=== PATIENT | female | born 2000 | race Caucasian/White ===

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

== ENCOUNTER 2022-02-18 14:45 | Outpatient (CLI) | payer OTHER, SELFPAY ==
[2022-02-18 18:56] LABS: Basophils Absolute Auto 0.1 K/mm3 (0.0-0.1); Basophils Percent Auto 0.7 % (0.2-1.2); Eosinophils Absolute Auto 0.2 K/mm3 (0-0.3); Eosinophils Percent Auto 2.9 % (0-4.4); Hematocrit 45.1 % (37.0-47.0); Hemoglobin 14.6 g/dL (12.0-15.0); Immature Granulocyte Absolute 0.02 K/mm3 (0.00-0.031); Immature Granulocyte Percent A 0.3 % (0-0.5); Lymphocytes Absolute Auto 2.62 K/mm3 (0.9-3.2); Lymphocytes Percent Auto 34.7 % (18.3-44.2); Mean Corpuscular HGB Conc 32.4 g/dl (32-36); Mean Corpuscular Hemoglobin 29.9 pg (26-34); Mean Corpuscular Volume 92.4 fl (80-100); Mean Platelet Volume 11.8 fl (7.4-10.4); Monocytes Absolute Auto 0.5 K/mm3 (0.1-0.6); Monocytes Percent Auto 6.2 % (2.6-8.5); Neutrophils Absolute Auto 4.2 K/mm3 (1.3-6.7); Neutrophils Percent Auto 55.2 % (45.5-73.1); Platelet Count Result 264 k/mm3 (150-375); Red Blood Count 4.88 M/mm3 (4.2-5.4); Red Cell Distribution Width 13.2 % (11.5-14.5); White Blood Count 7.5 K/mm3 (4.5-10.0)
[2022-02-18 20:49] LABS: Hepatitis B Surface Antigen Negative (Negative)
[2022-02-18 20:55] LABS: HAV RESULT Negative (Negative); Hepatitis B Core IgM Result Negative (Negative)
[2022-02-18 21:03] LABS: Alanine Aminotransferase 23 U/L (6-35); Albumin Level 4.9 g/dL (3.5-5.1); Alkaline Phosphatase 51 U/L (38-126); Anion Gap 11 mmol/L (8-16); Aspartate Amino Transferase 43 U/L (14-36); Bilirubin,Total 0.7 mg/dL (0.2-1.3); Blood Urea Nitrogen 15 mg/dL (7-17); Calcium 9.7 mg/dL (8.4-10.2); Carbon Dioxide 27 mmol/L (22-30); Chloride 101 mmol/L (98-107); Estimated Glomerular Filt Rate > 60; Glucose 87 mg/dL (65-110); Sodium 139 mmol/L (137-145)
[2022-02-18 21:06] LABS: Hepatitis C Virus Antibody Negative (Negative)
[2022-02-18 21:36] LABS: Thyroid Stimulating Hormone 0.855 uIU/mL (0.465-4.680)
[2022-02-18 21:46] LABS: HIV 1/2 Ab P24 Ag Result Negative (Negative)
[2022-02-19 08:48] LABS: Rapid Plasma Reagin Non-Reactive (NonReactive)
== END 2022-02-18 14:46 | disposition home or self-care (01) ==
LOC: ANHGOSHLAB 14:47
PROVIDERS: PCP Internal Medicine; Visit Provider Obstetrics & Gynecology
DX: Z11.3 Encounter for screening for infections with a predominantly sexual mode of transmission (principal); R25.1 Tremor, unspecified; Z86.2 Personal history of diseases of the blood and blood-forming organs and certain disorders involving the immune mechanism
CPT/HCPCS: 36415; 80053; 80074; 82728; 84443; 85025; 86592; 86703; G0432

== ENCOUNTER 2023-02-09 16:56 | Outpatient (CLI) | payer OTHER, SELFPAY ==
--- NOTE | ~2023-02-09 | MR_ITS ---
MRI of the brain Clinical History: Syncope Technique: Axial and sagittal T1-weighted images were acquired. These were followed by axial T2-weigh marzena, diffusion weighted, gradient, and FLAIR images. Following intravenous administration of 15 cc Mu ltiHance gadolinium, T1-weighted fat-sat imaging was performed in the axial and coronal planes. Findings: There is no abnormal signal in the brain parenchyma. No acute infarct, intracranial hemorrh age or mass lesion. Ventricles and subarachnoid spaces are unremarkable. Orbits are unremarkable. Paranasal sinuses and m astoid air cells are clear. Major intracranial flow voids are intact. Sagittal midline structures are intact. No abnormal postcontrast enhancement identified. IMPRESSION: Unremarkable exam. Reviewed, dictated and finalized at location M. IMPRESSION: Unremarkable exam.
== END 2023-02-09 16:57 | disposition home or self-care (01) ==
LOC: ANHIMG 16:57
PROVIDERS: PCP Internal Medicine; Visit Provider Nurse Practitioner
DX: R55 Syncope and collapse (principal); H53.8 Other visual disturbances; Z82.49 Family history of ischemic heart disease and other diseases of the circulatory system
CPT/HCPCS: 70553; A9577

== ENCOUNTER 2023-05-05 14:29 | Emergency (ER) | payer OTHER, SELFPAY ==
--- NOTE | ~2023-05-05 | XR_ITS ---
EXAMINATION: XR hand LT min 3V DATE: 05/05/2023 14:55 INDICATION: Malhotra left hand pain post fall TECHNIQUE: Posteroanterior, oblique and lateral views of the left hand were obtained. COMPARISON: None. FINDINGS: Alignment is normal. No fracture. Joint spaces are normal. Soft tissues are unremarkable. IMPRESSION: 1. Negative left hand radiographs. Reviewed, dictated and finalized at location A.
[2023-05-05 14:36] VITALS: BP 119/66; PULSE 73; RESP 16; TEMP 36.3; O2SAT 100
--- NOTE | 2023-05-05 14:41 | ED.UPPEXIN ---
HPI - Extremity Injury (Upper) General Chief Complaint: Extremity Injury, Upper Stated Complaint: Injured hand Source: patient and RN notes reviewed Mode of arrival: ambulatory Limitations: no limitations History of Present Illness HPI narrative: Patient is a 23-year-old female who presents to the [facility] with complaints of left hand pain. Patient states that she started experiencing pain after fall that occurred yesterday evening. Patient states that she was working for [employer] and had a delivery near a construction area. Patient states that she decided to go through the area that was ripped off. Patient states that her foot got caught up on the rope, causing her to fall. Patient states that she caught herself with her left hand. She has been experiencing constant aching to the palm of her left hand ever since. The pain is exacerbated with movement. She has full range of motion of the hand and wrist but states that causes her discomfort. Sensation is intact and she denies numbness. She is neurovascularly intact distally. Related Data Home Medications Medication Instructions Recorded Confirmed levonorgestrel 21 mcg/24 hours (8 1 device intrauterine ONCE 01/22/22 02/09/23 yrs) 52 mg intrauterine device (Mirena) Allergies Allergy/AdvReac Type Severity Reaction Status Date / Time No Known Allergies Allergy Mild Verified 02/09/23 11:43 Review of Systems Review of Systems: CONSTITUTIONAL: Denies fever, chills, or sweats. EYES: Denies visual changes, redness, or discharge. ENT: Denies otalgia and sore throat CARDIOVASCULAR: Denies chest pain, palpitations, or edema. RESPIRATORY: Denies cough or dyspnea. GASTROINTESTINAL: Denies abdominal pain, nausea, vomiting, or diarrhea. GENITOURINARY: Denies dysuria or hematuria. SKIN: Denies rash or itching. MUSCULOSKELETAL: Denies back pain or myalgia. Reports left hand pain. NEUROLOGIC: Denies headache, numbness, or weakness. Pertinent positives per HPI. [facility] Past Medical History Medical History Benign essential tremor Encounter for IUD insertion (04/01/20) Mirena insertion Encounter for screening examination for sexually transmitted disease Surgical History Surgical History History of placement of ear tubes x7 History of tonsillectomy Family History Family History Mother Asthma Aneurysm with brain surgery Father Lymphoma has 2 types of cancer Social History Social History Smoking status: Never smoker Second hand tobacco smoke exposure: Yes Alcohol intake: never Substance use: never Substance use type: does not use Lack of Transportation: No Lack of Food: Never True Current Housing: I Have Housing Concerned About Future Housing: No Difficulty Paying Gas/Electric Bills: No Difficulty Paying for Meds: No Currently Unemployed: No Education: High School Diploma/GED Difficulty w/ Childcare or Family Care: No Living arrangements: with family Additional living arrangements comments: single 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 There is no relevant family history pertinent to the patient complaint. Exam Narrative: GENERAL: This is a well-nourished, well-developed patient, in no apparent distress. HEAD: normocephalic, atraumatic. EYES: Sclera clear/white. Vision is grossly intact. EARS: External ears normal. Hearing grossly intact.
== END 2023-05-05 15:23 | disposition home or self-care (01) ==
PROVIDERS: Emergency Provider Nurse Practitioner; PCP Internal Medicine
DX: S60.222A Contusion of left hand, initial encounter (principal); W01.0XXA Fall on same level from slipping, tripping and stumbling without subsequent striking against object, initial encounter; Y92.69 Other specified industrial and construction area as the place of occurrence of the external cause; Y99.0 Civilian activity done for income or pay
CPT/HCPCS: 73130; 99213; G0463

== ENCOUNTER 2023-05-11 14:12 | Emergency (ER) | payer OTHER, SELFPAY ==
[2023-05-11 14:17] VITALS: BP 123/53; PULSE 82; RESP 20; TEMP 36.6; O2SAT 100
--- NOTE | 2023-05-11 14:50 | ED.NAVMDI ---
HPI - Nausea/Vomiting/Diarrhea General Chief complaint: Nausea/Vomiting/Diarrhea Stated complaint: n/v/d History of Present Illness HPI Narrative: 23-year-old female presents to the emergency room for evaluation of multiple episodes of nonbilious nonbloody vomiting and nonbloody diarrhea since this morning. Patient states that she reheated some Mong[place] food this morning prior to onset of symptoms. Patient also endorses abdominal cramping. Related Data Home Medications Medication Instructions Recorded Confirmed levonorgestrel 21 mcg/24 hours (8 1 device intrauterine ONCE 01/22/22 02/09/23 yrs) 52 mg intrauterine device (Mirena) Allergies Allergy/AdvReac Type Severity Reaction Status Date / Time No Known Allergies Allergy Mild Verified 05/11/23 14:20 Review of Systems Review of Systems: CONSTITUTIONAL: Denies fever, chills, or sweats. EYES: Denies visual changes, redness, or discharge. ENT: Denies rhinorrhea, congestion, sore throat, or otalgia. CARDIOVASCULAR: Denies chest pain, palpitations, or edema. RESPIRATORY: Denies cough or dyspnea. GASTROINTESTINAL: Reports abdominal pain, nausea, vomiting, and diarrhea. GENITOURINARY: Denies dysuria or hematuria. SKIN: Denies rash or itching. MUSCULOSKELETAL: Denies back pain, joint pain, or myalgia. NEUROLOGIC: Denies headache, numbness, dizziness, or weakness. PSYCHIATRIC: Denies anxiety or depression. [facility] Past Medical History Medical History Benign essential tremor Encounter for IUD insertion (04/01/20) Mirena insertion Encounter for screening examination for sexually transmitted disease Surgical History Surgical History History of placement of ear tubes x7 History of tonsillectomy Family History Family History Mother Asthma Aneurysm with brain surgery Father Lymphoma has 2 types of cancer Social History Social History Smoking status: Never smoker Second hand tobacco smoke exposure: Yes Alcohol intake: never Substance use: never Substance use type: does not use Lack of Transportation: No Lack of Food: Never True Current Housing: I Have Housing Concerned About Future Housing: No Difficulty Paying Gas/Electric Bills: No Difficulty Paying for Meds: No Currently Unemployed: No Education: High School Diploma/GED Difficulty w/ Childcare or Family Care: No Living arrangements: with family Additional living arrangements comments: single 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 HEAD: Normocephalic, atraumatic. EYES: Conjunctivae normal, PERRLA and EOMI. CHEST: Clear to auscultation. No respiratory distress. No wheezes rales or rhonchi. HEART: Regular rate and rhythm. No murmur heard. Normal peripheral pulses. ABDOMEN: Soft, diffuse tenderness, nondistended, hyperactive bowel sounds. BACK: No CVA tenderness EXTREMITIES: Normal range of motion. No edema. No clubbing or cyanosis SKIN: Warm, dry, no rash. No noted wounds NEURO: No focal deficits. Alert and oriented x3. MAEW. CN's II-XI intact bilaterally, normal gait PSYCH: Cooperative. Normal mood and affect. Course Vital Signs Vital signs: Vital Signs Temperature 36.6 C 05/11/23 14:17 Pulse Rate 82 05/11/23 14:17 Respiratory Rate 20 05/11/23 14:17 Blood Pressure 123/53 L 05/11/23 14:17 Pulse Oximetry 100 05/11/23 14:17 Oxygen Delivery Room Air 05/11/23 14:17 Temperature 36.6 C
[2023-05-11] MEDS: ONDANSETRON INJ 4 MG/2 ML VIAL IV PUSH (14:52)
[2023-05-11] MEDS: DICYCLOMINE HCL INJ 20 MG/2 ML VIAL IM (14:52)
[2023-05-11] MEDS: SODIUM CHLORIDE 0.9% IV 1,000 ML 999 ML IV CONT ×2 (14:52→15:32)
[2023-05-11 15:01] LABS: Basophils Percent Auto 0.1 % (0.2-1.2); Eosinophils Absolute Auto 0.1 K/mm3 (0-0.3); Eosinophils Percent Auto 0.5 % (0-4.4); Hematocrit 46.6 % (37.0-47.0); Hemoglobin 15.1 g/dL (12.0-15.0); Immature Granulocyte Absolute 0.06 K/mm3 (0.00-0.031); Immature Granulocyte Percent A 0.4 % (0-0.5); Lymphocytes Absolute Auto 0.79 K/mm3 (0.9-3.2); Lymphocytes Percent Auto 5.8 % (18.3-44.2); Mean Corpuscular HGB Conc 32.4 g/dl (32-36); Mean Corpuscular Hemoglobin 30.2 pg (26-34); Mean Corpuscular Volume 93.2 fl (80-100); Mean Platelet Volume 11.2 fl (7.4-10.4); Monocytes Absolute Auto 0.5 K/mm3 (0.1-0.6); Monocytes Percent Auto 3.4 % (2.6-8.5); Neutrophils Absolute Auto 12.2 K/mm3 (1.3-6.7); Neutrophils Percent Auto 89.8 % (45.5-73.1); Platelet Count Result 236 k/mm3 (150-375); Red Cell Distribution Width 12.3 % (11.5-14.5); White Blood Count 13.7 K/mm3 (4.5-10.0)
[2023-05-11 15:11] LABS: Alanine Aminotransferase 23 U/L (6-35); Alkaline Phosphatase 50 U/L (38-126); Anion Gap 10 mmol/L (8-16); Aspartate Amino Transferase 21 U/L (14-36); Bilirubin,Total 1.2 mg/dL (0.2-1.3); Blood Urea Nitrogen 17 mg/dL (7-17); Calcium 9.5 mg/dL (8.4-10.2); Carbon Dioxide 25 mmol/L (22-30); Chloride 104 mmol/L (98-107); Estimated CRCL calculation 126 ml/min; Estimated Glomerular Filt Rate > 60; Glucose 115 mg/dL (65-110); Potassium 3.7 mmol/L (3.4-5.0); Sodium 139 mmol/L (137-145)
[2023-05-11 15:14] LABS: Appearance Urine Clear (Clear); Bacteria Urine 1+ /hpf; Bilirubin Urine Negative (Negative); Blood Urine Negative (Negative); Color Urine Dark Yellow (Yellow); Glucose Urine UA Negative (Negative); Ketones Urine Trace mg/dL (Negative); Leukocyte Esterase Ur Trace LEU/UL (Negative); Need Manual Microscopic Reviewed; Nitrate Urine Negative (Negative); Non Pathogenic Casts 0-2; Protein Urine Trace mg/dL (Negative); Specific Grav Ur 1.035 (1.001-1.035); Squamous Epithelial Cell Urine Occasional /hpf (Few); WBC Urine 0-5 /hpf
[2023-05-11 15:18] LABS: Add Urine Microscopic? YES
== END 2023-05-11 16:10 | disposition home or self-care (01) ==
PROVIDERS: Emergency Provider Nurse Practitioner Family; PCP Internal Medicine
DX: A05.9 Bacterial foodborne intoxication, unspecified (principal); N39.0 Urinary tract infection, site not specified; Z97.5 Presence of (intrauterine) contraceptive device; Z77.22 Contact with and (suspected) exposure to environmental tobacco smoke (acute) (chronic)
CPT/HCPCS: 36415; 80053; 81001; 85025; 96361; 96372; 96374; 99284; J0500; J2405; J7030

== ENCOUNTER 2023-10-28 12:22 | Outpatient (NON) | payer OTHER, SELFPAY ==
[2023-10-28 14:31] LABS: Appearance Urine Cloudy (Clear); Bacteria Urine 1+ /hpf; Bilirubin Urine Negative (Negative); Blood Urine Negative (Negative); Color Urine Dark Yellow (Yellow); Glucose Urine UA Negative (Negative); Ketones Urine Negative (Negative); Leukocyte Esterase Ur Trace LEU/UL (Negative); Mucus Urine Present /lpf; Need Manual Microscopic Reviewed; Nitrate Urine Negative (Negative); Non Pathogenic Casts 0-2; Protein Urine 1+ mg/dL (Negative); Specific Grav Ur 1.028 (1.001-1.035); Squamous Epithelial Cell Urine Moderate /hpf (Few); pH Urine 8.5 (5.0-9.0)
[2023-10-28 14:34] LABS: Add Urine Microscopic? YES
== END 2023-10-28 12:23 | disposition home or self-care (01) ==
LOC: ANHGOSHLAB 12:23
PROVIDERS: PCP Nurse Practitioner; Visit Provider Nurse Practitioner
DX: R14.0 Abdominal distension (gaseous) (principal); R39.9 Unspecified symptoms and signs involving the genitourinary system
CPT/HCPCS: 81001; 87086

== ENCOUNTER 2024-02-02 11:03 | Emergency (ER) | payer OTHER, SELFPAY ==
--- NOTE | ~2024-02-02 | XR_ITS ---
XR chest 2V Ordering provider: Spencer Machado MD History: 23 years Female with . COUGH, FEVER . Comparison: November 05, 2016 FINDINGS: MEDIASTINUM: The cardiac silhouette is not enlarged. LUNGS: No effusions or pneumothorax. Prominent bronchovascular markings are seen bilaterally. Early p neumonia in the left lung base is not excluded. Follow-up advised. OTHER: No free air under the diaphragm. IMPRESSION: Early pneumonia in the left lung base. Reviewed, dictated and finalized at location A.
[2024-02-02 11:07] VITALS: BP 130/59; PULSE 104; RESP 20; TEMP 37.2; O2SAT 100
[2024-02-02 11:51] LABS: Influenza A QL RT-PCR Negative (Negative); Influenza B QL RT-PCR Negative (Negative); RSV RNA, RT-PCR Negative (Negative); SARS-CoV-2 RNA PCR Negative (Negative)
--- NOTE | 2024-02-02 12:04 | ED.GENADULT ---
HPI - General Adult General Chief complaint: Upper Respiratory Infection Stated complaint: MULTI C/O X4D Time Seen by Provider: 02/02/24 11:17 History of Present Illness HPI narrative: Patient is a 23-year-old female who presents ER with cold symptoms for 4 days. She has been having fevers and chills. She has had productive cough and sore throat. Child is also sick. No chest pain or chest pressure. Related Data Home Medications Medication Instructions Recorded Confirmed levonorgestrel 21 mcg/24 hr (up to 1 device intrauterine ONCE 01/22/22 12/20/23 9 years) 52 mg intrauterine device (Mirena) clonazepam 0.5 mg tablet 0.5 mg PO BID 10/28/23 12/20/23 Allergies Allergy/AdvReac Type Severity Reaction Status Date / Time No Known Allergies Allergy Mild Verified 02/02/24 11:07 Review of Systems Constitutional: Constitutional: Reports chills, Reports fatigue and Reports fever(s) ENT: Denies dizziness, Denies nasal congestion and Reports sore throat Cardiovascular: Cardiovascular: Reports no additional cardiovascular complaints Respiratory: Respiratory: Reports cough and Reports dyspnea Gastrointestinal: Gastrointestinal: Reports no additional gastrointestinal complaints [facility] Past Medical History Medical History (Updated 02/02/24 @ 12:23 by Spencer Machado MD) Benign essential tremor Encounter for IUD insertion (04/01/20) Mirena insertion Encounter for screening examination for sexually transmitted disease Surgical History Surgical History (Updated 12/20/23 @ 13:53 by Malissa Houston CMA) History of placement of ear tubes x7 History of tonsillectomy Hx of appendectomy Family History Family History (Updated 12/20/23 @ 13:54 by Malissa Houston CMA) Mother Asthma Aneurysm with brain surgery Father Lymphoma has 2 types of cancer Grandparent Uterine cancer Social History Social History (Updated 12/20/23 @ 13:55 by Malissa Houston CMA) Social History: Caffeine-coffee/tea Smoking status: Never smoker Second hand tobacco smoke exposure: Yes Alcohol intake: never Substance use: current Substance use type: marijuana Do You Feel Safe in your Home?: Yes Lack of Transportation: No Lack of Food: Never True Current Housing: I Have Housing Concerned About Future Housing: No Difficulty Paying Gas/Electric Bills: No Difficulty Paying for Meds: No Currently Unemployed: No Education: High School Diploma/GED Difficulty w/ Childcare or Family Care: No Living arrangements: with family Additional living arrangements comments: single 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 HEAD: Normocephalic, atraumatic. ENT: Mucous membranes moist. Normal-appearing posterior oropharynx. NECK: Supple. CHEST: Clear to auscultation. No respiratory distress. HEART: Regular rate and rhythm. Normal peripheral pulses. EXTREMITIES: Normal range of motion. No edema. SKIN: Warm, dry, no rash. NEURO: Alert and oriented x3. PSYCH: Normal mood and affect. Course Vital Signs Vital signs: Vital Signs Temperature 99 F 02/02/24 11:07 Pulse Rate 104 H 02/02/24 11:07 Respiratory Rate 20 02/02/24 11:07 Blood Pressure 130/59 L 02/02/24 11:07 Pulse Oximetry 100 02/02/24 11:07 Oxygen Delivery Room Air 02/02/24 11:07 Temperature 99 F 02/02/24 11:07 Pulse Rate 104 H 02/02/24 11:07 Respiratory Rate 20 02/02/24 11:07 Blood Pressure 130/59 L 02/02/24 11:07 Pulse Oximetry 100 02/02/24 11:07 Oxygen Delivery Room Air 02/02/24 11:15 Medical Decision Making MDM Narrative Medical decision making narrative: -Course: Patient resting c
[2024-02-02 12:54] VITALS: BP 130/60; PULSE 99; RESP 18; TEMP 37.2; O2SAT 100
== END 2024-02-02 13:00 | disposition home or self-care (01) ==
PROVIDERS: Emergency Provider Emergency Medicine; PCP Nurse Practitioner
DX: J18.9 Pneumonia, unspecified organism (principal); Z20.822 Contact with and (suspected) exposure to COVID-19
CPT/HCPCS: 71046; 87637; 99283